=== PATIENT | female | born 1955 | race Caucasian/White ===

== ENCOUNTER → 2016-08-18 | Outpatient (CLI) | payer OTHER ==
[~2016-08-18] MED LIST: ACETAMINOPHEN PO; ALBUTEROL MININEB NEB; ALBUTEROL17 GM INH; ALPRAZOLAM PO; AZITHROMYCIN500 MG PO; FLEXERIL PO; LIPITOR20 MG PO; MULTI-VITAMIN1 TAB; NORCO 7.5/325 T1 TAB PO; PANTOPRAZOLE SO40 MG PO; PERFOROMIS20 MCG/2 M IH; PRAVACHOL20 MG PO; PRAVASTATIN SOD20 MG PO; PREDNISONE10 MG PO; PROAIR HFA8.5 GM IN; PROAIR RESPICL90 MCG INH; PROTONIX PO; PROZAC; PULMICORT0.5 MG/2 M IH; REMERON SOLTAB15 M1 PO; REMERON15 MG PO; SPIRIVA18 MCG; SPIRIVA18 MCG INH; TYLOX 5/500 CAP1 CAP PO; VITAMIN D-32000 UNIT PO; XOPENEX HFA15 GM NEB; XOPENEX45 MCG/15 IH; ZOCOR; [UNRECOGNIZED DRUG - OTHER]; [UNRECOGNIZED DRUG - OTHER]
--- NOTE | ~2016-08-18 | MY11 ---
[facility] A Service of [facility] RADIOLOGY TEXT RESULTS PATIENT: JEN BUTLER LOCATION: [facility] : 53 UNIT #: [id number] AGE: [address]: MICHAEL MCGEE SEX: F ORDER DR: [id number] [facility] [address] [place], [place] [address] [id number] O MR#: [id number] Acc #: [id number] NAME: JEN BUTLER : 1955 SEX: F STUDY DATE/TIME: 08/18/2016 13:11 UNIT: [facility] ROOM: STUDY DESCRIPTION: MY Mammogram Screening Dig Jayme Attending Physician: Michael Mcgee M.D. Referring Physician: Michael Mcgee M.D. Ordering Physician: Cristiano Not Listed Primary Care Physician: Michael Mcgee M.D. MEDICAL IMAGING REPORT This report is preliminary unless electronic signature is present EXAM Digital screening mammogram, 08/18/2016. HISTORY 60-year-old woman; positive family history, aunt. Interim weight loss of 30 pounds. Patient difficult to image. Annual screening. COMPARISON STUDIES 06/30/2013, 01/27/2015. FINDINGS Digital imaging of each breast was completed, utilizing screening protocol. Mole markers were placed bilaterally. Review includes FDA-approved CAD device. Breast structures are small and breast parenchyma is extremely dense. I see no suspicious mass characteristics. There are no suspicious microcalcifications and no architectural deformity. IMPRESSION Stable benign mammogram. Dense breast parenchyma noted. Annual screening recommended. Patients over the age of 40 are entered into a reminder system with target due date for the next mammogram. A result letter will also be sent to the patient. BIRADS: 2 Benign finding. Dictated by... [facility] A Service of [facility] RADIOLOGY TEXT RESULTS PATIENT: JEN BUTLER LOCATION: [facility] : 53 UNIT #: [id number] AGE: [address]: MICHAEL MCGEE SEX: F ORDER DR: Jerrell Kelley M.D. THIS IS AN ELECTRONICALLY VERIFIED REPORT Jerrell Kelley M.D. at 08/21/2016 8:03 AM MONIKA/alessia TD: 08/18/2016 17:55 JOB #: [id number] MEDICAL IMAGING REPORT COPY
== END | disposition home or self-care (01) ==
LOC: CWCC 12:54
DX: Z12.31 Encounter for screening mammogram for malignant neoplasm of breast (principal); Z80.3 Family history of malignant neoplasm of breast; R92.8 Other abnormal and inconclusive findings on diagnostic imaging of breast
CPT/HCPCS: G0202